=== PATIENT | female | born 1950 | race Two or more races ===

== ENCOUNTER 2024-08-16 09:40 | Day surgery (SDC) | payer MEDICARE, SELFPAY ==
--- NOTE | 2024-08-15 07:04 | EKG_ITS ---
[facility] Test Date: 2024-08-15 Pat Name: MARLENY INIGUEZ Department: Room: - Gender: Female International Student Advisor: MARIA E : 1950 Requested By: Mei Jhaveri Order Number: [id number] Reading MD: eMi Jhaveri Measurements Intervals [place] Rate: 66 P: 37 HI: 202 QRS: 108 QRSD: 82 T: 47 QT: 356 QTc: 375 Interpretive Statements SINUS RHYTHM WITH OCCASIONAL VENTRICULAR PREMATURE COMPLEXES POSSIBLE RIGHT VENTRICULAR HYPERTROPHY [SOME/ALL OF: PROMINENT R IN V1, LATE TRANSITION, RAD, FALLON, SSS] POSSIBLE ANTERIOR MYOCARDIAL INFARCTION , OF INDETERMINATE AGE [30 ms Q WAVE IN V3/V4, OR R < 0.2 mV IN V4] Compared to ECG 07/05/2022 09:00:34 Ventricular premature complex(es) now present Left anterior fascicular block no longer present Myocardial infarct finding still present /store/S0/[id number]/ecg/[id number].pdf
[2024-08-15 11:02] VITALS: BMI 27.6
[2024-08-15 11:12] VITALS: BMI 27.6
[2024-08-15 13:12] LABS: Basophils % (Auto) 1 % (0-2.5); Eosinophils # (Auto) 0.2 Thou/mm3 (0.0-0.5); Eosinophils % (Auto) 4 % (0-10); Hematocrit 34.6 % (36.0-46.0); Immature Granulocytes % (Auto) 0 % (0-0); Immature Granulocytes Auto 0.02 Thou/mm3 (0.00-0.00); Lymphocytes # (Auto) 1.6 Thou/mm3 (1.0-4.8); Lymphocytes % (Auto) 26 % (10-50); Mean Corpuscular HGB Conc 34.7 g/dl (31.0-37.0); Mean Corpuscular Hemoglobin 30.3 pg (25.0-35.0); Mean Corpuscular Volume 87 fL (80-100); Monocytes # (Auto) 0.4 Thou/mm3 (0.0-0.8); Monocytes % (Auto) 6 % (0-12); Neutrophils # (Auto) 3.8 Thou/mm3 (1.8-7.7); Neutrophils % (Auto) 63 % (37-80); Nucleated Red Blood Cell % 0 /100 WBC (0); Platelet Count 148 Thou/mm3 (140-440); RDW Standard Deviation 45.7 fL (36.4-46.3); Red Blood Count 3.96 Miln/mm3 (4.00-5.20); White Blood Count 6.1 Thou/mm3 (3.6-11.0)
[2024-08-15 13:22] LABS: Alanine Aminotransferase 17 U/L (10-49); Albumin, Serum 4.1 gm/dL (3.4-4.8); Albumin/Globulin Ratio 1.7 (1.2-2.2); Alkaline Phosphatase 77 U/L (46-116); Anion Gap 9 (7-16); BUN/Creatinine Ratio 19 Ratio (12-20); Bilirubin,Total 1.1 mg/dL (0.3-1.2); Blood Urea Nitrogen 17 mg/dL (9-23); Calcium 9.1 mg/dL (8.3-10.6); Calcium (Corrected) 9.1 mg/dL (8.5-10.1); Carbon Dioxide 26.2 mMol/L (20.0-31.0); Chloride 104 mMol/L (98-107); Creatinine (Component) 0.9 mg/dL (0.6-1.3); Estimated Creatinine Clearance 51.3 mL/min (>60); Globulin 2.4 gm/dL (2.3-3.5); Glucose 260 mg/dL (74-106); Osmolality,Calculated 288 (275-295); Potassium 4.3 mMol/L (3.4-5.1); Sodium 139 mMol/L (136-145); Total Protein 6.5 gm/dL (5.7-8.2); eGFR > 60 See Note
--- NOTE | 2024-08-15 15:15 | SUR.PREOP ---
Pt notified to come in tomorrow at 1000
[2024-08-16] VITALS (11 sets, daily range): BP systolic 136–167; BP diastolic 63–97; PULSE 58–74; RESP 12–22; TEMP 36.6–37.1; O2SAT 95–100; BMI 27.3
--- NOTE | 2024-08-16 12:02 | SUR.PHASEI ---
1202 Patient arrived to recovery resting comfortably in [facility], on oxygen 8L via oxy mask with an oral airway in place, breathing unlabored, vital signs stable, dressing intact to abdomen; dermabond, no bleeding noted, report received from Espinoza HERRERA/ Yudi SCHMIDT and Nevaeh SHABAZZ
--- NOTE | 2024-08-16 12:24 | ESOP_ITS ---
Date of Procedure 08/16/24 Pre Op Diagnosis Symptomatic cholelithiasis Post Op Diagnosis Cholelithiasis with cholecystitis Procedure Laparoscopic cholecystectomy Findings Moderately distended gallbladder with multiple gallstones and chronic cholecystitis Procedure Description Patient was brought into the operating room in supine position. After administration of general endotracheal anesthesia abdomen was prepped and draped in standard surgical manner. A Veress needle was inserted through the umbilicus and pneumoperitoneum was obtained up to 15 mmHg. The Veress needle was then removed, a 5 mm infraumbilical incision was made and the 5mm trocar was inserted. Laparoscopic camera was placed. Under direct visualization a laparoscopic camera a 10 mm trocar was placed in subxiphoid and two 5 mm trocars placed in right upper quadrant. The gallbladder was identified and was noted to be moderately distended with multiple gallstones and chronic cholecystitis. It was retracted cephalad and laterally. Dissection started near the infundibulum of gallbladder where cystic duct and gallbladder junction clearly identified. The cystic duct was circumferentially dissected off the peritoneum and surrounding inflammatory tissue. The critical view of safety was clearly demonstrated. Cystic duct was then divided between 2 endoclips proximally and one distally. The cystic artery was similarly dissected and divided. The gallbladder was then from the liver bed using electrocautery. The gallbladder was then placed inside an Endo Catch and removed from the abdomen utilizing subxiphoid trocar site. The area was copiously and thoroughly washed and irrigated, all the fluid was suctioned and the suction fluid returned clear. Hemostasis achieved using electrocautery. Endoclips noted be in place and intact without any bleeding or any leakage. Hemostasis was adequate and satisfactory. The subxiphoid trocar sites fascial defect was closed with 0 Vicryl using Endo Closure device. Instruments and trocars removed, pneumoperitoneum was evacuated and the incisions closed with 4-0 Monocryl in subcuticular fashion. Instrument needle and sponge counts were all reported to be correct X2. Patient tolerated the procedure well, was extubated, breathing spontaneously and without difficulty and was transferred to postanesthesia care in stable condition. Anesthesia GETA and local Pathology / specimen Other (Gallbladder and contents) Estimated Blood Loss 10 Condition Stable Disposition PACU Surgeon Mei Jhaveri MD Surgical Staff Operation Date: 08/16/24 12:00 Case Staff [employer] MANAGER: Nic Kong RNsheltered workshop worker: Maureen Luther
--- NOTE | 2024-08-16 12:45 | SUR.PHASEII ---
1245 Report given to Stephanie SHABAZZ
--- NOTE | 2024-08-16 12:45 | SUR.PHASEII ---
pt awake and oriented. denies pain and nausea. vss on room air. breathing even and unlabored. dermabond cdi to abdomen x4
--- NOTE | 2024-08-16 13:12 | SUR.PHASEII ---
pt sitting up in bed tolerating po fluids and jello. denies pain and nausea.
--- NOTE | 2024-08-16 13:22 | SUR.PHASEII ---
1322 Report received from Stephanie SHABAZZ
--- NOTE | 2024-08-16 13:22 | SUR.PHASEII ---
report to jenny harper pt preparing for discharge. sitting up in [place] with daughter at bedside. vss. dressing cdi. breathing even and unlabored. tolerated po and burping. states feels good.
--- NOTE | 2024-08-16 13:59 | SUR.PHASEII ---
1359 Patient meets discharge criteria from recovery, awake and alert, breathing unlabored, vitals signs stable, denies pain, dressing intact; no bleeding noted, patient assisted with dressing into her clothing by her daughter, patient ate a jello and drinking 7up; denies nausea, discharge instructions given to patient and patients daughter with the assistance of the telephone project management advisor Aneesh ID#[id number]
== END 2024-08-16 13:59 | disposition home or self-care (01) ==
PROVIDERS: PCP Family Medicine; Referring Provider Surgery; Visit Provider Surgery
PROC: 0FT44ZZ Resection of Gallbladder, Percutaneous Endoscopic Approach (ICD-10-PCS; CPT 47562; principal; 2024-08-16 12:00)
DX: K80.10 Calculus of gallbladder with chronic cholecystitis without obstruction (principal); Z01.810 Encounter for preprocedural cardiovascular examination
CPT/HCPCS: 47562; 36415; 80053; 85025; 93005; A4217; A4649; J0131; J0694; J1100; J2405; J2704; J3010; J3490